=== PATIENT | female | born 1945 | race American Indian/Alaskan Native ===

== ENCOUNTER 2018-09-25 06:41 | Day surgery (SDC) | payer MEDICARE ==
[2018-09-25] MEDS ORDERED: NACL 0.9% 1000 ML 1,000 ML IV SCH (08:30)
--- NOTE | 2018-09-25 09:04 | Anesthesia Consultation ---
Anesthesia Consult and Med Hx Date of service: 09/25/18 - Airway Anesthetic Teeth Evaluation: Partials (bottom) ROM Head & Neck: Adequate Mental/Hyoid Distance: Adequate Mallampati Class: Class II Intubation Access Assessment: Probably Good - Pre-Operative Health Status ASA Pre-Surgery Classification: ASA2 Proposed Anesthetic Plan: MAC - Pulmonary Hx Smoking: Yes (quit smoking 10 years ) - Cardiovascular System Hx Hypertension: Yes - Central Nervous System Hx Psychiatric Problems: Yes (anxiety) - Gastrointestinal Hx Gastroesophageal Reflux Disease: Yes - Other Systems Hx Obesity: Yes (s/p gastric band)
--- NOTE | 2018-09-25 09:05 | Anesthesia Day of Surgery ---
Anesthesia Day of Surgery - Day of Surgery Patient Examined: Yes Patient H&P Reviewed: Yes Patient is NPO: Yes
[2018-09-25] MEDS ORDERED: DIPRIVAN 10 MG/ML IV ONE (09:12)
[2018-09-25] MEDS ORDERED: XYLOCAINE MPF 2% ONE (12:00)
--- NOTE | 2018-09-25 13:38 | Operative Report ---
PREOPERATIVE DIAGNOSIS: Years status post lap band placement, now having problems with nausea, vomiting and keeping food down. PROCEDURE: Esophagogastroduodenoscopy. SURGEON: Ramu Ndiaye M.D. ANESTHESIA: Propofol. TECHNIQUE: The patient was placed on the operating table in the dorsal supine position and following satisfactory induction of slight sedation she was then placed in the left lateral decubitus position and then using propofol, she was placed to a little bit deeper awake sleep using MAC. The scope was then passed down to the esophagus and as we went down to the esophagus, we saw that the Z line was above the level of the sharee indicating that she had a hiatal hernia. As we passed through the Z-line into the upper pouch above the band, it was noted that the band had slipped slightly anteriorly. This slippage narrowed the GE junction at the cardia level. Following this, we went through the band area and into the rest of the stomach, retroflexed and looked at the band to make sure that there was no erosion. There was no erosion identified and again it was noted that the patient had a probable anterior slippage. She will need to be scheduled to undergo removal of the band as that is what she desires because of her chronic nausea and vomiting. She has lost about 50 pounds, but she now desires to have the band removed to prevent continued nausea and vomiting. She will therefore be scheduled in the very near future to undergo removal of the band. JOB# [id number] TDMayte/MAINOR
[2018-09-25 14:15] VITALS: BP 131/68
== END 2018-09-25 06:42 | disposition home or self-care (01) ==
LOC: GIO 06:41
PROVIDERS: ATTEND Specialist
DX: K30 Functional dyspepsia (principal); R13.0 Aphagia; K44.9 Diaphragmatic hernia without obstruction or gangrene; K95.09 Other complications of gastric band procedure; I10 Essential (primary) hypertension; K21.9 Gastro-esophageal reflux disease without esophagitis; E66.9 Obesity, unspecified; F41.9 Anxiety disorder, unspecified; Z79.899 Other long term (current) drug therapy; Z87.891 Personal history of nicotine dependence; Z68.25 Body mass index [BMI] 25.0-25.9, adult; Z96.653 Presence of artificial knee joint, bilateral; Z98.890 Other specified postprocedural states
CPT/HCPCS: 43235; J2704; J7030